=== PATIENT | female | born 1935 | race Asian ===

== ENCOUNTER 2016-03-28 18:39 | Observation (INO) | payer MEDICARE, OTHER ==
[~2016-03-28] VITALS: Ht 152.4 cm; Wt 45.1 kg
[~2016-03-28 18:39] MED LIST: CLON0.1D T-DERMAL; DONE10TA7 PO; FURO20TA PO; KLOR25TA2 PO; LEVO75TA3 PO; LORA-373 PO; MEMA1TAB2 PO; QUET1TAB10 PO; VITACAP7 PO
[2016-03-28 19:17] VITALS: BP 186/121; PULSE 90; RESP 24; TEMP 98.9; O2SAT 97
[2016-03-28 21:01] VITALS: BP 198/95; PULSE 90; RESP 18; TEMP 98.9; O2SAT 97
[2016-03-28] MEDS ORDERED: SODIUM CHLOR 0.9% 1000 ML INJ 1,000 ML IV SCH (22:15)
[2016-03-28 22:33] VITALS: BP 196/87; PULSE 110; RESP 18; O2SAT 96
[2016-03-28 22:35] LABS: AUTOMATED NEUTROPHIL # 3.7 TH/MM3 (1.8-7.7); EOSINOPHIL % 0.8 % (0.0-4.0); HEMATOCRIT 36.5 % (35.0-46.0); HEMO FLAGS DIFF FINAL; LYMPH % 17.6 % (9.0-44.0); LYMPHOCYTE # 0.9 TH/MM3 (1.0-4.8); MEAN CELL VOLUME 86.1 FL (80.0-100.0); MEAN CORPUSCULAR HEMOGLOBIN 27.8 PG (27.0-34.0); MEAN CORPUSCULAR HGB CONC 32.3 % (32.0-36.0); MONO % 5.9 % (0.0-8.0); NEUT % 74.7 % (16.0-70.0); PLATELET COUNT 387 TH/MM3 (150-450); RED BLOOD COUNT 4.24 MIL/MM3 (4.00-5.30); RED CELL DISTRIBUTION WIDTH 14.3 % (11.6-17.2); WHITE BLOOD COUNT 4.9 TH/MM3 (4.0-11.0)
[2016-03-28 22:42] LABS: CHLORIDE 108 MEQ/L (98-107); POTASSIUM 3.4 MEQ/L (3.5-5.1); SODIUM (NA) 144 MEQ/L (136-145)
[2016-03-28 22:46] LABS: ANION GAP 11 MEQ/L (5-15); BICARBONATE 25.4 MEQ/L (21.0-32.0); BLOOD UREA NITROGEN 10 MG/DL (7-18); MAGNESIUM 1.9 MG/DL (1.5-2.5)
[2016-03-28 22:48] LABS: ALT (GPT) LESS THAN 6 U/L (10-53)
[2016-03-28 22:49] LABS: AST (GOT) 12 U/L (15-37); GLOMERULAR FILTRATION RATE 43 ML/MIN (>89)
[2016-03-28 22:50] LABS: TOTAL BILIRUBIN ADULT 0.5 MG/DL (0.2-1.0)
[2016-03-28 22:51] LABS: ALKALINE PHOSPHATASE 84 U/L (45-117)
--- NOTE | 2016-03-28 23:09 | PD ---
HPI Chief Complaint: Complaint Time Seen by Provider: 22:07 Travel History International Travel<30 days: No Contact w/Intl Traveler<30days: No Traveled to known affect area: No History of Present Illness HPI The patient is an 81-year-old female that has a history of fairly rapidly progressing dementia and has complaining of right frontal headache since shaking intermittently for a week. The family states she is more weak than normal. They called Dr. Diaz, the patient's primary care physician, and he told them to go to the emergency room. The patient speaks very little Indonesian. Her speaks English and interprets very well for her. PFSH Past Medical History Cardiovascular Problems: Yes High Cholesterol: Yes Dementia: Yes Diminished Hearing: No Hypertension: Yes Immunizations Current: Yes Thyroid Disease: Yes Tetanus Vaccination: < 5 Years Influenza Vaccination: Yes ?: Not Menopausal: Yes Social History Alcohol Use: No Tobacco Use: No Substance Use: No Allergies-Medications (Allergen,Severity, Reaction): Coded Allergies: Codeine (Verified Allergy, Unknown, 03/28/16) Daypro (Verified Allergy, Unknown, 03/28/16) Penicillin (Verified Allergy, Unknown, 03/28/16) Zithromax (Verified Allergy, Unknown, 03/28/16) Reported Meds & Prescriptions Reported Meds & Active Scripts Active Reported Clonidine 168 HR Patch (Clonidine HCl) 0.1 Mg/24 Hr Patch 1 Patch T-DERMAL Q7D Klor-Con EF (Potassium Bicarbonate) 25 Meq Tab 25 Meq PO DAILY Levothyroxine (Levothyroxine Sodium) 75 Mcg Tab 75 Mcg PO DAILY Quetiapine (Quetiapine Fumarate) 300 Mg Tab 300 Mg PO HS Review of Systems ROS Limitations: Language Barrier, Poor Historian Except as stated in HPI: all other systems reviewed are Neg Physical Exam Exam Limitations: Poor Historian Narrative GENERAL: [-] SKIN: Warm and dry. HEAD: Atraumatic. Normocephalic. EYES: Pupils equal and round. No scleral icterus. No injection or drainage. ENT: No nasal bleeding or discharge. Mucous membranes pink and moist. NECK: Trachea midline. No JVD. CARDIOVASCULAR: Regular rate and rhythm. No murmur appreciated. RESPIRATORY: No accessory muscle use. Clear to auscultation. Breath sounds equal bilaterally. GASTROINTESTINAL: Abdomen soft, non-tender, nondistended. Hepatic and splenic margins not palpable. MUSCULOSKELETAL: No obvious deformities. No clubbing. No cyanosis. No edema. NEUROLOGICAL: Awake and alert. No obvious cranial nerve deficits. Motor grossly within normal limits. Normal speech. PSYCHIATRIC: Appropriate mood and affect; insight and judgment normal. Data Data Last Documented VS Vital Signs Date Time Temp Pulse Resp B/P Pulse Ox O2 Delivery O2 Flow Rate FiO2 03/28/16 23:36 107 18 195/88 98 Room Air 03/28/16 21:01 98.9 Orders Electrocardiogram (03/28/16 22:07) Complete Blood Count With Diff (03/28/16 22:07) Comprehensive Metabolic Panel (03/28/16 22:) Urinalysis - C+S If Indicated (03/28/16 22:07) Magnesium (Mg) (03/28/16 22:07) Thyroid Stimulating Hormone (03/28/16 22:07) Chest, Pa & Lat (03/28/16 22:07) Ct Brain W/O Iv Contrast(Rout) (03/28/16 22:07) Cath For Specimen (03/28/16 22:07) Sodium Chlor 0.9% 1000 Ml Inj (Ns 1000 M (03/28/16 22:15) Ckmb (Isoenzyme) Profile (03/28/16 21:30) Troponin I (03/28/16 21:30) Labs Laboratory Tests Test 03/28/16 03/28/16 21:30 23:30 White Blood Count 4.9 TH/MM3 Red Blood Count 4.24 MIL/MM3 Hemoglobin 11.8 GM/DL Hematocrit 36.5 % Mean Corpuscular Volume 86.1 FL Mean Corpuscular Hemoglobin 27.8 PG Mean Corpuscular Hemoglobin 32.3 % Concent Red Cell Distribution Width 14.3 % Platelet Count 387 TH/MM3 Mean Platelet Volume 8.5 FL Neutrophils (%) (Auto) 74.7 % Lymphocytes (%) (Auto) 17.6 % Monocytes (%) (Auto) 5.9 % Eosinophils (%) (Auto) 0.8 % Basophils (%) (Auto) 1.0 % Neutrophils # (Auto) 3.7 TH/MM3 Lymphocytes # (Auto) 0.9 TH/MM3 Monocytes # (Auto) 0.3 TH/MM3 Eosinophils # (Auto) 0.0 TH/MM3 Basophils # (Auto) 0.0 TH/MM3 CBC Comment DIFF FINAL Differential Comment Sodium Level 144 MEQ/L Potassium Level 3.4 MEQ/L Chloride Level 108 MEQ/L Carbon Dioxide Level 25.4 MEQ/L Anion Gap 11 MEQ/L Blood Urea Nitrogen 10 MG/DL Creatinine 1.20 MG/DL Estimat Glomerular Filtration 43 ML/MIN Rate Random Glucose 124 MG/DL Calcium Level 8.1 MG/DL Magnesium Level 1.9 MG/DL Total Bilirubin 0.5 MG/DL Aspartate Amino Transf 12 U/L (AST/SGOT) Alanine Aminotransferase LESS THAN 6 U/L (ALT/SGPT) Alkaline Phosphatase 84 U/L Total Creatine Kinase 56 U/L Troponin I 0.12 NG/ML Total Protein 7.9 GM/DL Albumin 2.7 GM/DL Thyroid Stimulating Hormone 0.546 uIU/ML 3rd Gen Urine Color YELLOW Urine Turbidity CLEAR Urine pH 6.5 Urine Specific [place] 1.017 Urine Protein 30 mg/dL Urine Glucose (UA) NEG mg/dL Urine Ketones 15 mg/dL Urine Occult Blood NEG Urine Nitrite NEG Urine Bilirubin NEG Urine Leukocyte Esterase NEG Urine RBC 0-2 /hpf Urine WBC 3-5 /hpf Urine Squamous Epithelial 0-5 /hpf Cells Urine Bacteria NONE /hpf Microscopic Urinalysis Comment CULT NOT INDICATED MDM Medical Decision Making Medical Screen Exam Complete: Yes Emergency Medical Condition: Yes Medical Record Reviewed: Yes Interpretation(s) The CBC is normal except for 75% neutrophils. The complete metabolic profile shows a potassium of 3.4, creatinine 1.2, glucose 124, calcium 8.1 with albumin 2.7 but is otherwise normal. The EKG shows left bundle-branch block, leftward axis and no acute change. The rhythm is sinus at a rate of 76. The CT brain shows no acute intercranial abnormality. There is the expected atrophy and chronic white matter changes previously noted. The chest x-ray shows mild cardiomegaly, tortuous aorta or but no acute infiltrate is seen. There are some mild basilar and peripheral interstitial opacities which are probably chronic. The cardiac enzymes show a troponin I of 0.12. The TSH is normal. Differential Diagnosis Intracranial bleed, intracranial mass, dementia, electrolyte disorder, dehydration, acute myocardial infarction, renal insufficiency, congestive heart failure Narrative Course The patient appears to have advancing dementia. There is no any clinical, laboratory or imaging evidence for any of the above other possibilities. Plan: The family should try to keep the patient hydrated as best they can and follow-up with Dr. Campos Diaz. The family is given all of the reports of the laboratory, EKG, imaging. Procedures EKG Prior to Arrival: No Physician Communication Physician Communication I discussed the patient with Dr. Campos Diaz. I will admit the patient for 23 hour observation to him and he will discuss with the family the patient's CODE STATUS and realistic expectations. At this time the patient is a full code. Diagnosis Primary Impression: Elevated troponin I level Additional Impressions: Congestive heart failure Generalized weakness Dementia Ruled Out: Intracranial bleed Admitting Information Admitting Physician Requests: Observation Wilian Nguyen MD Mar 28, 2016 23:09
--- NOTE | 2016-03-28 23:09 | RADHPO ---
EXAM DATE/TIME: 03/28/2016 22:32 [facility] COMPARISON: No previous studies available for comparison. INDICATIONS : Shortness of breath. MEDICAL HISTORY : Hypertension. Hypercholesterolemia. Dementia, Thyroid disease SURGICAL HISTORY : Total knee replacement, right. ENCOUNTER: Initial ACUITY: 1 day PAIN SCORE: 0/10 LOCATION: Bilateral chest FINDINGS: Mild, basilar and peripheral predominant interstitial opacities are seen of both lungs, probably rn chronic vineet. No lobar consolidation seen. No pleural effusion or pneumothorax. There is mild cardiomegaly. Thoracic aorta is tortuous and atherosclerotic. There are also tortuous m ediastinal vessels. CONCLUSION: 1. No acute pneumonia seen. 2. Chronic interstitial opacities of the bases. 3. Mild cardiomegaly. 4. Tortuous thoracic aorta and mediastinal vessels. Jer Carmen MD on March 28, 2016 at 23:06 Board Certified Radiologist. This report was verified electronically.
[2016-03-28 23:21] LABS: CREATINE KINASE 56 U/L (26-192)
--- NOTE | 2016-03-28 23:25 | RADHPO ---
EXAM DATE/TIME: 03/28/2016 22:39 [facility] COMPARISON: CT BRAIN W/O CONTRAST, January 08, 2016, 14:43. INDICATIONS : Headaches for one week. RADIATION DOSE: 58.13 CTDIvol (mGy) MEDICAL HISTORY : Hypertension. Dementia. SURGICAL HISTORY : None. ENCOUNTER: Initial ACUITY: 1 week PAIN SCALE: 6/10 LOCATION: cranial TECHNIQUE: Multiple contiguous axial images were obtained of the head. Using automated exposure control and adj ustment of the mA and/or kV according to patient size, radiation dose was kept as low as reasonably a chievable to obtain optimal diagnostic quality images. FINDINGS: CEREBRUM: Mild ventriculomegaly again noted. There is central and cortical atrophy and chronic white matter low attenuation.. No evidence of midline shift, mass lesion, hemorrhage or acute infarction. No extra- axial fluid collections are seen. Marked intracranial atherosclerotic plaque noted, especially verteb robasilar but also the supraclinoid portions of both internal carotids. POSTERIOR FOSSA: The cerebellum and brainstem are intact. The 4th ventricle is midline. The cerebellopontine angle i s unremarkable. EXTRACRANIAL: The visualized portion of the orbits is intact. Paranasal sinuses and mastoid air cells are clear. SKULL: The calvaria is intact. No evidence of skull fracture. CONCLUSION: 1. No acute intracranial abnormality demonstrated. 2. Atrophy and chronic white matter changes are again noted. Also prominent chronic intracranial athe rosclerosis. Jer Carmen MD on March 28, 2016 at 23:21 Board Certified Radiologist. This report was verified electronically.
[2016-03-28 23:36] VITALS: BP 195/88; PULSE 107; RESP 18; O2SAT 98
[2016-03-28 23:40] LABS: BLOOD, URINE NEG (NEG); GLUCOSE,URINE NEG (NEG); KETONE, URINE 15 mg/dL (NEG); NITRITE,URINE NEG (NEG); PH, URINE 6.5 (5.0-8.5)
[2016-03-28 23:46] LABS: URINE COLOR YELLOW (YELLW/STRAW)
[2016-03-28 23:47] LABS: COMMENT (UR) CULT NOT INDICATED; CULTURE IF INDICATED CULT NOT INDICATED; RBC, URINE 0-2 /hpf (0-3); SQUAMOUS EPITHELIAL CELL URINE 0-5 /hpf (0-5)
[2016-03-29] VITALS (9 sets, daily range): BP systolic 168–217; BP diastolic 86–136; PULSE 83–108; RESP 16–20; TEMP 97.4–98.5; O2SAT 93–99
[2016-03-29] MEDS ORDERED: SODIUM CHLOR 0.45% 1000 ML INJ 1,000 ML IV SCH (00:47)
[2016-03-29] MEDS ORDERED: ACETAMINOPHEN 325 MG TAB PO PRN (01:00)
[2016-03-29] MEDS ORDERED: SODIUM CHLORIDE 0.9% FLUSH 5 ML FLUSH FLUSH PRN (01:00)
[2016-03-29] MEDS ORDERED: NALOXONE HCL 0.4 MG/ML AMP IV PRN (01:00)
[2016-03-29] MEDS ORDERED: cloNIDine HCL 0.3 MG/24 HR PATCH TD SCH (01:00)
[2016-03-29] MEDS: NITROGLYCERIN 2% OINT 1 GM PACKET TOPICAL SCH ×3 (01:22→16:44)
[2016-03-29] MEDS: 1/2 NS + KCL 20 MEQ INJ 1,000 ML IV SCH ×2 (01:43→15:07)
[2016-03-29] MEDS: ENALAPRILAT 2.5 MG/2 ML VIAL IV PUSH PRN ×2 (04:05→20:03)
[2016-03-29] MEDS: LEVOTHYROXINE SODIUM 75 MCG TAB PO SCH (05:20)
[2016-03-29] MEDS ORDERED: NITROGLYCERIN 2% OINT 1 GM PACKET TOPICAL ONE (05:30)
[2016-03-29] MEDS ORDERED: ACETAMINOPHEN 650 MG/20.3 ML UDC PO PRN (06:00)
[2016-03-29] MEDS: SODIUM CHLORIDE 0.9% FLUSH 5 ML FLUSH FLUSH SCH ×2 (08:48→19:36)
[2016-03-29] MEDS: POTASSIUM CHLORIDE 25 MEQ EFFERVESCENT TAB PO SCH ×2 (10:00→19:37)
[2016-03-29] MEDS: FUROSEMIDE 20 MG/2 ML VIAL IV PUSH SCH (10:01)
[2016-03-29 10:47] LABS: POTASSIUM 3.3 MEQ/L (3.5-5.1)
[2016-03-29 10:51] LABS: BICARBONATE 23.7 MEQ/L (21.0-32.0)
--- NOTE | 2016-03-29 11:31 | MH ---
cc: DANNY HUNG DATE OF ADMISSION: 03/29/2016 ADMITTING DIAGNOSIS Weakness, increasing confusion and symptomatic hypertension. HISTORY OF PRESENT ILLNESS This 81-year-old female well-known to undersigned physician has advanced dementia, she resides at home with her . Over the last couple of weeks, the patient has had increasing blood pressure and her medications have been adjusted. The patient however has had more difficulty taking oral medication due to difficulty swallowing, as a result her medications had to be adjusted further. She has had some lower extremity edema but there has been no evidence of any shortness of breath or chest pain. History is very difficult to obtain due to the patient's advanced cognitive deficits. The patient's contacted the undersigned physician on the day prior to admission reporting that she had increasing confusion, lethargy. She was complaining of headaches and was not eating or drinking very much at all for the last week. He reports that she drank no more than a cup of liquids a day for the last couple of days. She has had no fever or chills. Her bowels are moving every few days. She usually is continent of bowels and bladder but occasionally will have some incontinence of bladder. Her urine has not been smelling any different than usual. She has had no nausea or vomiting. The was instructed to bring the patient to this facility for further evaluation and treatment. PAST MEDICAL HISTORY Her past medical history is significant for - 1. Advanced vascular dementia. 2. Allergic rhinitis. 3. Hypertension. 4. Hyperlipidemia. 5. History of endometrial polyps which were treated with hysteroscopy and D&C in 2002. 6. She had history of GERD. 7. Esophageal strictures which have been dilated in the past. 8. Irritable bowel syndrome. 9. Osteoarthritis. 10. Hypothyroidism. 11. Aortic sclerosis. 12. Mitral valve regurgitation. MEDICATIONS Her current medications are - 1. Clonidine 0.3 mg patch apply one patch weekly. 2. Potassium chloride 25 mEq effervescent tablets one daily. 3. levothyroxine 75 mcg daily. 4. Quetiapine 200 mg at bedtime. 5. Lorazepam 0.5 mg one tablet at bedtime as needed for anxiety or agitation. 6. Furosemide 20 mg daily. ALLERGIES CODEINE - WHICH CAUSES NAUSEA. DAYPRO. PENICILLIN - WHICH CAUSED A RASH. AZITHROMYCIN - WHICH CAUSED GASTROINTESTINAL UPSET. FAMILY HISTORY Noncontributory. SOCIAL HISTORY She is . She resides with her . She is retired. She does not smoke nor did she ever. She does not consume alcohol. REVIEW OF SYSTEMS Negative except as outlined above. PHYSICAL EXAMINATION VITAL SIGNS: Upon arrival to the emergency department the patient's blood pressure was 186/121 with a heart rate of 90, respirations 24, temperature 98.9 degrees Fahrenheit, oxygen saturation on room air was 97%. At the current time the blood pressure is 170/102 with a heart rate of 102, respirations 20, temperature is 97.4 degrees axillary, oxygen saturation on room air is 93%. GENERAL: This is a small, frail, female with obvious advanced cognitive deficits lying in bed in no acute distress. HEENT: Pupils are equal, round and reactive to light. Extraocular movements are intact. Sclerae are anicteric. Nares patent without discharge. Mouth and throat reveal dry mucous membranes, no erythema or exudates. NECK: Neck is supple without lymphadenopathy, JVD, bruits or thyromegaly. CARDIOVASCULAR: Regular rate and rhythm with a 3/6 systolic murmur heard best at the left lower sternal border radiating to the apex. There are no rubs or gallops. LUNGS: Lungs are overall clear to auscultation. Abdomen: Abdomen is soft, nontender, nondistended with bowel sounds present. GENITOURINARY/RECTAL: Deferred. LOWER EXTREMITIES: Reveal trace to 1+ edema in the ankles and feet. SKIN: Warm and dry. NEUROLOGIC EXAMINATION: The patient is awake and alert. Orientation is not possible to assess due to a language barrier as she no longer speaks Serbian but only [place]. She moves all extremities equally with 4/5 strength. Cranial nerves appear to be intact. She has obvious severe neuro cognitive deficits. LABORATORY DATA Comprehensive metabolic profile was significant for a potassium level of 3.4, BUN was normal at 10 but creatinine 1.20, glucose was 124, calcium was 8.1. The total protein was normal at 7.9 but albumin is 2.7. The CK was normal at 56. Troponin elevated at 0.12. BNP was 2610. TSH 0.546. Urinalysis showed 30 mg percent protein, otherwise unremarkable. White blood count 4.9, hemoglobin 11.8, hematocrit 36.5, platelet count was 387,000. IMAGING STUDIES The chest x-ray showed no acute pneumonia, chronic interstitial opacities in the bases, mild cardiomegaly. Noncontrast CT scan of the head reveals no acute intracranial abnormalities. There is atrophy and chronic white matter changes and prominent intracranial atherosclerosis. The EKG revealed a left bundle branch block. Further analysis is not possible, no prior tracing for comparison. IMPRESSION AND PLAN 1. This 81-year-old female presented with severe hypertension and worsening mental status changes. The patient will be admitted to a medical-surgical bed with telemetry. She has an elevated troponin level, CK is normal. Must rule out acute ischemia. We will perform serial EKGs and cardiac enzymes. The patient was placed on nitroglycerin ointment. We will apply her clonidine patch. I have ordered IV Vasotec as needed for elevated blood pressure. Unfortunately, the patient is not swallowing well at this time so oral medications are difficult to provide her. Since she has had an increase in an elevated BNP and a known history of mitral insufficiency, we will check an echocardiogram to evaluate LV function. It is quite possible the patient has acute on chronic systolic or diastolic heart failure. We will make further recommendations pending the results of the echocardiogram and the serial EKGs and cardiac enzymes. 2. Hypothyroidism. We will continue with levothyroxine. If the patient is having difficulty swallowing pills, we will attempt to give her the levothyroxine crushed in applesauce, if not possible we will need to hold. 3. Advanced dementia. I had discussion with the patient's daughter who is at the bedside about the patient's advanced dementia. She is reaching end stage and I do not believe that there is much more that can be done with regard to her medical issues because of the advanced dementia and the increasing dysphasia. She wishes me to speak with her father who is the patient's , we will do so when he is available. I have suggested Hospice referral with comfort measures. We will make further recommendations in this regard after my conversation with him. In the meantime, we will provide the patient with some IV Lasix for the congestive heart failure. We will provide her with supplemental potassium chloride to correct the hypokalemia. I am going to discontinue her quetiapine at this point as she is very weak and I believe her dementia has progressed to the point where it may not be necessary anymore. MD FREDERICK Owen/CHENG /10:28 AM /10:46 AM
--- NOTE | 2016-03-29 13:18 | EKG ---
Date Performed: 03/28/2016 Time Performed: 22:26:26 PTAGE: 81 years EKG: Sinus rhythm Leftward axis Left bundle branch block Abnormal ECG PREVIOUS TRACING : 04/29/1994 11.07 Compared to previous tracing, left bundle branch block is n ew. Clinical correlation is required. DOCTOR: Maximus Jon Interpretating Date/Time 03/29/2016 13:17:00
[2016-03-29] MEDS: LORazepam 2 MG/ML VIAL IV PRN (19:33)
[2016-03-29] MEDS ORDERED: POTASSIUM CHLOR 20 MEQ PREMIX 100 ML IV ONE (20:00)
[2016-03-29] MEDS ORDERED: QUEtiapine FUMARATE 300 MG TAB PO SCH (21:00)
[2016-03-30] VITALS (8 sets, daily range): BP systolic 168–206; BP diastolic 86–129; PULSE 69–100; RESP 16–22; TEMP 97–99.4; O2SAT 95–100
[2016-03-30] MEDS ORDERED: SODIUM CHLOR 0.45% IV SCH (00:47)
[2016-03-30] MEDS ORDERED: POTASSIUM CHLORIDE IV SCH (00:47)
[2016-03-30] MEDS: LORazepam 2 MG/ML VIAL IV PRN ×2 (01:26→19:21)
[2016-03-30] MEDS: NITROGLYCERIN 2% OINT 1 GM PACKET TOPICAL SCH ×2 (01:26→08:54)
[2016-03-30] MEDS: 1/2 NS + KCL 20 MEQ INJ 1,000 ML IV SCH ×2 (04:35→20:11)
[2016-03-30 08:30] LABS: BICARBONATE 23.1 MEQ/L (21.0-32.0); POTASSIUM 4.4 MEQ/L (3.5-5.1)
[2016-03-30] MEDS: SODIUM CHLORIDE 0.9% FLUSH 5 ML FLUSH FLUSH SCH ×2 (08:54→20:11)
[2016-03-30] MEDS: LEVOTHYROXINE SODIUM 75 MCG TAB PO SCH (08:54)
[2016-03-30] MEDS: FUROSEMIDE 20 MG/2 ML VIAL IV PUSH SCH (08:54)
--- NOTE | 2016-03-30 10:00 | HHI.PR ---
Subjective Remarks Awake this am. Slept 4-5 hrs with Ativan. PO intake minimal. Will not take any po meds. Current Medications Medications (Trade) Dose Ordered Sig/Hayder Route Start Time Stop Time Status Last Admin (NS Flush) 2 ml UNSCH PRN FLUSH 03/29/16 01:00 (NS Flush) 2 ml BID FLUSH 03/29/16 09:00 (Narcan Inj) 0.4 mg UNSCH PRN IV 03/29/16 01:00 (Synthroid) 75 mcg DAILY@0600 PO 03/29/16 06:00 03/30/16 08:54 (Nitroglycerin 2% Oint) 1 inch Q8H TOPICAL 03/29/16 01:00 03/30/16 08:54 (Catapres-Tts 0.3 Mg Patch.7d) 1 patch Q7D TD 03/29/16 01:00 03/29/16 01:43 Miscellaneous Information 1 Q7D T-DERMAL 04/05/16 01:00 Enalaprilat 2.5 mg 2.5 mg Q8H PRN IV PUSH 03/29/16 01:00 03/29/16 20:03 (1/2 NS + KCl 20 Meq Inj) 1,000 ml @ 75 mls/hr [id number] IV 03/29/16 01:30 03/30/16 04:35 (Tylenol 650 Mg/ 20 ml Liq) 650 mg Q4H PRN PO 03/29/16 06:00 03/29/16 05:56 (Lasix Inj) 20 mg DAILY IV PUSH 03/29/16 10:00 03/30/16 08:54 (Ativan Inj) 0.25 mg Q6H PRN IV 03/29/16 19:15 03/30/16 01:26 Objective Vital Signs Date Time Temp Pulse Resp B/P Pulse Ox O2 Delivery O2 Flow Rate FiO2 03/30/16 04:00 97.9 75 16 96 03/30/16 00:00 98.0 91 18 186/115 96 03/29/16 20:00 98.5 91 16 217/136 99 190/92 03/29/16 16:00 97.9 92 20 195/118 93 03/29/16 12:00 97.6 108 20 168/86 94 I/O 03/29/16 03/29/16 03/29/16 03/30/16 03/30/16 03/30/16 07:00 15:00 23:00 07:00 15:00 23:00 Intake Total 1000 ml 50 ml 1168 ml Balance 1000 ml 50 ml 1168 ml Intake Oral 50 ml 120 ml IV Total 1000 ml 1048 ml # Voids 5 1 # Bowel Movements 0 0 CV: RRR with sys murmur Lungs: CTA Abd: soft, NT, ND, +BS Neuro: awake. follows commands. no lateralizing deficits. severe cognitive deficits Result Diagram: 03/28/16212903/30/16 0657 Assessment and Plan Problem List: (1) Congestive heart failure Status: Acute Plan: Echo done this am. Patient taking no minimal po. Hold Lasix. Decrease IVF. Not taking po meds (2) Vascular dementia Status: Chronic Plan: The patient has reached end stage with severe cognitive impairment. Refusing po feeds. Has become nonambulatory. Family met with hospice this am and they have decided to enroll patient in hospice for end stage vascular dementia. Fast score 7d Plan will be to make arrangements for the patient to go home. Will need hospital bed and BSC. states they have a senior living care policy so will arrange SLIP C[employer] ESTIMATOR caregivers at home to assist family with patient care. (3) Hypertension Status: Chronic Plan: BP remains elevated despite Clonidine patch, IV Enalapril and Nitropaste. Did improve with Ativan. (4) Hypothyroidism Status: Chronic Plan: Will discontinue Levothyroxine as she is not able to take po Assessment and Plan I just met with hospice nurse and family has elected hospice services. Anticipate discharge to home tomorrow Problem Qualifiers (1) Congestive heart failure: Qualified Code: I50.9 - Acute on chronic congestive heart failure, unspecified congestive heart failure type (2) Vascular dementia: Qualified Code: F01.51 - Vascular dementia with behavior disturbance (3) Hypertension: Qualified Code: I10 - Essential hypertension (4) Hypothyroidism: Qualified Code: E03.9 - Hypothyroidism, unspecified type Campos Diaz MD Mar 30, 2016 10:00
[2016-03-30] MEDS: ENALAPRILAT 2.5 MG/2 ML VIAL IV PUSH PRN ×2 (12:58→22:45)
--- NOTE | 2016-03-30 13:02 | EKG ---
Date Performed: 03/29/2016 Time Performed: 10:12:30 PTAGE: 81 years EKG: Sinus rhythm . Leftward axis Left bundle branch block Compared to prior tracing no significant change Abnormal ECG PREVIOUS TRACING : 03/29/2016 03.59 DOCTOR: Maximus Jon Interpretating Date/Time 03/30/2016 12:57:08
--- NOTE | 2016-03-30 13:02 | EKG ---
Date Performed: 03/29/2016 Time Performed: 03:59:28 PTAGE: 81 years EKG: Sinus rhythm Left bundle branch block Leftward axis Compared to prior tracing no significant change Abnormal ECG PREVIOUS TRACING : 03/28/2016 22.26 DOCTOR: Maximus Jon Interpretating Date/Time 03/30/2016 12:57:01
--- NOTE | 2016-03-30 16:11 | EC ---
Study Study Date:03/30/2016 STUDY CONCLUSIONS SUMMARY - Left ventricle: The cavity size was mildly dilated. Wall thickness was at the upper limits of normal. Systolic function was severely reduced. The estimated ejection fraction was in the range of 15% to 20%. Diffuse hypokinesis. - Aortic valve: Probably at least moderate aortic stenosis visually, but low gradients due to poor cardiac output. Transvalvular velocity was increased less than expected, due to low cardiac output. Moderate regurgitation. Valve area: 1.5cm^2 (Vmax). - Mitral valve: Mildly calcified, moderately thickened annulus. Moderately thickened, moderately calcified leaflets, . Mild regurgitation. - Pulmonary arteries: Systolic pressure was moderately increased. PA peak pressure: 59mm Hg (S). - Pericardium, extracardiac: A trivial pericardial effusion was identified. There was a left pleural effusion. If LV function is below 40, please consider prescribing an ACEI or ARB or document rationale for non-use. PROCEDURE DATA STUDY STATUS: Elective. Procedure: Transthoracic echocardiography. Image quality was good. Scanning was performed from the parasternal, apical, and subcostal acoustic windows. Study completion: The patient tolerated the procedure well. Transthoracic echocardiography. M-mode, complete 2D, complete spectral Doppler, and color Doppler. Patient status: Inpatient. CARDIAC ANATOMY LEFT VENTRICLE: The cavity size was mildly dilated. Wall thickness was at the upper limits of normal. Systolic function was severely reduced. The estimated ejection fraction was in the range of 15% to 20%. Diffuse hypokinesis. AORTIC VALVE: Probably at least moderate aortic stenosis visually, but low gradients due to poor cardiac output. Trileaflet; moderately thickened, moderately calcified leaflets. Doppler: Transvalvular velocity was increased less than expected, due to low cardiac output. Moderate regurgitation. Valve area: 1.5cm^2 (Vmax). Mean gradient: 7mm Hg (S). Peak gradient: 15mm Hg (S). AORTA: Aortic root: The aortic root was normal in size. MITRAL VALVE: Mildly calcified, moderately thickened annulus. Moderately thickened, moderately calcified leaflets, . Doppler: Transvalvular velocity was within the normal range. There was no evidence for stenosis. Mild regurgitation. LEFT ATRIUM: The atrium was normal in size. RIGHT VENTRICLE: The cavity size was normal. Wall thickness was normal. PULMONIC VALVE: Doppler: Transvalvular velocity was within the normal range. There was no evidence for stenosis. Trace regurgitation. TRICUSPID VALVE: Structurally normal valve. Doppler: Transvalvular velocity was within the normal range. No regurgitation. PULMONARY ARTERY: The main pulmonary artery was normal-sized. Systolic pressure was moderately increased. RIGHT ATRIUM: The atrium was normal in size. PERICARDIUM: A trivial pericardial effusion was identified. SYSTEMIC VEINS: Inferior vena cava: The vessel was normal in size. Pleura: There was a left pleural effusion. BASIC MEASUREMENTS ADULT Normal Left ventricle LV internal dimension, ED, chordal level, 51 mm 43-52 PLAX LV internal dimension, ES, chordal level, *48.3 mm 23-38 PLAX Fractional shortening, chordal level, PLAX *5 % >29 LV posterior wall thickness, ED 11.2 mm IVS/LVPW ratio, ED 0.88 <1.3 Ventricular septum Septal thickness, ED 9.82 mm Aortic valve Leaflet separation 15 mm 15-26 Right ventricle RV internal dimension, ED, PLAX 28.1 mm 19-38 BASIC MEASUREMENTS ADULT Normal Aortic valve Leaflet separation 15 mm 15-26 Aorta Root diameter, ED 37 mm 20-37 Left atrium Anterior-posterior dimension, ES 40 mm 19-40 LA/aortic root ratio 1.08 DOPPLER MEASUREMENTS ADULT Normal Main pulmonary artery Pressure, S *59 mm Hg =30 Aortic valve Peak velocity, S 193 cm/s Mean velocity, S 123 cm/s VTI, S 30.1 cm Mean gradient, S 7 mm Hg Peak gradient, S 15 mm Hg Valve area, Vmax 1.5 cm^2 Regurgitant velocity, ED 474 cm/s Regurgitant deceleration 3500 cm/s^2 Regurgitant pressure half-time 396 ms Regurgitant gradient, ED 90 mm Hg Tricuspid valve Regurgitant peak velocity 350 cm/s Peak RV-RA gradient, S 49 mm Hg Maximal regurgitant velocity 350 cm/s Systemic veins Estimated CVP 10 mm Hg Right ventricle RV pressure, S *59 mm Hg <30 LEGEND: Mean values are shown as u=mean value. Asterisk (*) tan values outside specified normal range. Prepared and signed by Maximus Jon [id number]
[2016-03-30] MEDS ORDERED: ACETAMINOPHEN 650 MG SUPP RECTAL PRN (23:15)
[2016-03-31] VITALS: BP 138/68; PULSE 69; RESP 20; TEMP 98.5; O2SAT 100
[2016-03-31] MEDS ORDERED: FLUMAZENIL 0.5 MG/5 ML VIAL IV PUSH ONE (07:45)
[2016-03-31 08:00] VITALS: BP 170/90; PULSE 72; RESP 20; TEMP 98.4; O2SAT 100
--- NOTE | 2016-03-31 08:02 | HHI.PR ---
Subjective Remarks Slept all night. Not arousing this am. Has not received Ativan since last evening. PO intake minimal. BP better with manual BP. Current Medications Medications (Trade) Dose Ordered Sig/Hayder Route Start Time Stop Time Status Last Admin (NS Flush) 2 ml UNSCH PRN FLUSH 03/29/16 01:00 03/30/16 22:45 (NS Flush) 2 ml BID FLUSH 03/29/16 09:00 03/30/16 20:11 (Narcan Inj) 0.4 mg UNSCH PRN IV 03/29/16 01:00 (Catapres-Tts 0.3 Mg Patch.7d) 1 patch Q7D TD 03/29/16 01:00 03/29/16 01:43 Miscellaneous Information 1 Q7D T-DERMAL 04/05/16 01:00 Enalaprilat 2.5 mg 2.5 mg Q8H PRN IV PUSH 03/29/16 01:00 03/30/16 22:45 (1/2 NS + KCl 20 Meq Inj) 1,000 ml @ 50 mls/hr Q20H IV 03/29/16 01:30 03/30/16 20:11 (Tylenol 650 Mg/ 20 ml Liq) 650 mg Q4H PRN PO 03/29/16 06:00 03/29/16 05:56 (Tylenol Supp) 650 mg Q4H PRN RECTAL 03/30/16 23:15 03/30/16 23:51 (Romazicon Inj) 0.2 mg ONCE ONCE IV PUSH 03/31/16 07:45 03/31/16 07:46 UNV Objective Vital Signs Date Time Temp Pulse Resp B/P Pulse Ox O2 Delivery O2 Flow Rate FiO2 03/31/16 00:00 98.5 69 20 138/68 100 03/30/16 22:30 99 Nasal Cannula 2.00 03/30/16 20:00 99.4 88 20 188/92 96 03/30/16 17:30 100 18 170/100 03/30/16 16:00 86 206/129 96 03/30/16 12:00 98.1 94 22 196/126 95 03/30/16 08:00 97.0 69 20 168/86 100 I/O 03/30/16 03/30/16 03/30/16 03/31/1613/17 2/13/17 07:00 15:00 23:00 07:00 15:00 23:00 Intake Total 544 ml 392 ml Balance 544 ml 392 ml Intake Oral 0 ml 0 ml IV Total 544 ml 392 ml # Voids 2 2 # Bowel Movements 0 CV: RRR with systolic murmur Lungs: CTA Abd: soft, NT, ND Ext: no edema Neuro: not arousing to tactile or verbal stimulus Result Diagram: 03/28/16212903/30/16 0657 Assessment and Plan Problem List: (1) Vascular dementia Status: Chronic Plan: End stage Vascular dementia. Patient unresponsive. Will give Romazicon to reverse sedation from Ativan. Patient has been enrolled in hospice. original plan was for her to go home with hospice services but declining rapidly. May need care center placement. Call placed to hospice Patient received single dose Romazicon. Eyes opened. Will discontinue Ativan for now and have nurses call me if patient has anxiety or restlessness. Will then give doses as needed (2) Congestive heart failure Status: Acute Plan: Echo reveals 15-20% ejection fraction. Severe LV systolic dysfunction. Saline lock IV (3) Hypertension Status: Chronic Plan: BP better this am. I have discussed with at bedside. BP control is not priority due to terminal condition. Plan is for patient comfort (4) Hypothyroidism Status: Chronic Plan: Will discontinue Levothyroxine as she is not able to take po Assessment and Plan Spoke with hospice nurse and will make arrangements for Care Center placement Problem Qualifiers (1) Vascular dementia: Qualified Code: F01.51 - Vascular dementia with behavior disturbance (2) Congestive heart failure: Qualified Code: I50.9 - Acute on chronic congestive heart failure, unspecified congestive heart failure type (3) Hypertension: Qualified Code: I10 - Essential hypertension (4) Hypothyroidism: Qualified Code: E03.9 - Hypothyroidism, unspecified type Campos Diaz MD Mar 31, 2016 08:02
[2016-03-31 08:33] VITALS: O2SAT 98
[2016-03-31 12:00] VITALS: BP 150/90; PULSE 78; RESP 18; TEMP 98.1; O2SAT 95
[2016-04-05] MEDS ORDERED: [UNRECOGNIZED DRUG - REMARK] T-DERMAL SCH (01:00)
== END 2016-03-31 14:48 | disposition hospice, inpatient (51) ==
LOC: PHED 18:39 → PHEDA 03-29 00:51 → PH3B 03-29 03:15
PROVIDERS: ADMIT Family Medicine; ATTEND Family Medicine
DX: F01.51 Vascular dementia, unspecified severity, with behavioral disturbance (principal); I50.43 Acute on chronic combined systolic (congestive) and diastolic (congestive) heart failure; I10 Essential (primary) hypertension; R51 Headache; E03.9 Hypothyroidism, unspecified; E78.5 Hyperlipidemia, unspecified; E87.6 Hypokalemia; I34.0 Nonrheumatic mitral (valve) insufficiency; K21.9 Gastro-esophageal reflux disease without esophagitis; E78.00 Pure hypercholesterolemia, unspecified; K58.9 Irritable bowel syndrome, unspecified; R47.02 Dysphasia; Z96.651 Presence of right artificial knee joint
CPT/HCPCS: 70450; 71020; 80048; 80053; 81001; 82550; 83735; 83880; 84443; 84484; 85025; 93005; 93306; 96360; 96361; 99285; G0378; J1940; J2060; J3480; J7030; P9612